=== PATIENT | female | born 2000 | race Two or more races ===

== ENCOUNTER 2021-01-22 10:57 | Emergency (ER) | payer OTHER ==
[~2021-01-22] VITALS: Ht 154.9 cm; Wt 78.9 kg
[2021-01-22 10:59] VITALS: BP 132/72
== END 2021-01-22 13:21 | disposition left against medical advice (07) ==
LOC: ER 10:57
DX: J45.909 Unspecified asthma, uncomplicated (principal); K21.9 Gastro-esophageal reflux disease without esophagitis; Z20.822 Contact with and (suspected) exposure to COVID-19
CPT/HCPCS: 36415; 71046; 87426

== ENCOUNTER 2021-01-22 19:00 | Emergency (ER) | payer OTHER ==
[~2021-01-22] VITALS: Ht 154.9 cm; Wt 78.9 kg
[2021-01-22 21:48] VITALS: BP 128/85
[2021-01-22] MEDS ORDERED: ALBUTEROL SULF 2.5 MG/0.5ML(0.5%) NEB SOLN NEB ONE (22:15)
[2021-01-22] MEDS ORDERED: IPRATROPIUM BROM 0.5 MG/2.5ML INH SOL NEB ONE (22:15)
== END 2021-01-22 23:50 | disposition home or self-care (01) ==
LOC: ER 19:02
DX: J98.01 Acute bronchospasm (principal); E66.9 Obesity, unspecified
CPT/HCPCS: 94640; 99283; J7644

== ENCOUNTER 2021-02-07 13:00 | Inpatient (IN) | payer OTHER ==
[~2021-02-07] VITALS: Ht 154.9 cm; Wt 86.2 kg
[2021-02-07 19:46] LABS: Basophils # (auto) 0.1 10 ^3/uL (0-0.2); Basophils % (auto) 0.5 % (0.0-2.0); Eosinophils # (auto) 0.4 10 ^3/uL (0-0.8); Eosinophils % (auto) 3.4 % (0.0-7.0); Hematocrit 39.8 % (36.0-46.0); Lymphocytes # (auto) 1.5 10 ^3/uL (0.4-5.4); Lymphocytes % (auto) 12.1 % (10.0-50.0); Mean Corpuscular Hemoglobin 27.6 pg (28.0-32.0); Mean Corpuscular Hgb Conc. 32.7 g/dL (32.0-36.0); Mean Corpuscular Volume 84.4 fL (80.0-100.0); Monocytes # (auto) 0.8 10 ^3/uL (0-1.3); Monocytes % (auto) 6.3 % (0.0-12.0); Neutrophils # (auto) 9.4 10 ^3/uL (1.6-8.6); Neutrophils % (auto) 77.7 % (37.0-80.0); Red Blood Cells 4.71 10^6/uL (4.0-5.20); Red Cell Distribution Width 13.2 % (11.8-14.3); White Blood Cell 12.1 10^3/uL (4.4-10.8)
[2021-02-07 20:18] LABS: Albumin 3.3 g/dL (3.4-5.0); BUN/Creatinine Ratio 19.7; Calcium 8.7 mg/dL (8.5-10.1); Potassium 3.9 mmol/L (3.5-5.1)
[2021-02-07 20:21] LABS: Bilirubin, Total 0.3 mg/dL (0.2-1.0); Total Protein 7.7 g/dL (6.4-8.2)
[2021-02-07] MEDS ORDERED: ENOXAPARIN SOD 80 MG/0.8ML SYRINGE SC ONE (22:15)
[2021-02-07] MEDS: MORPHINE SULFATE 4 MG/ML SYR/VIAL IV PRN (22:45)
[2021-02-07] MEDS ORDERED: MORPHINE SULFATE INJECTION 2 MG/ML SYRG ONE (22:45)
[2021-02-07] MEDS ORDERED: NITROGLYCERIN 0.4 MG SL TAB SL PRN (23:45)
[2021-02-07] MEDS ORDERED: MORPHINE SULFATE INJECTION 2 MG/ML SYRG IV PRN (23:45)
[2021-02-08] MEDS: HYDROcodone-ACET 5/325MG TAB PO PRN ×2 (01:15→09:42)
[2021-02-08] MEDS: SODIUM CHLOR 0.9% PF (SALINE LOCK) 10ML VIAL/SYR IV SCH ×3 (05:08→22:00)
[2021-02-08] MEDS: MORPHINE SULFATE 4 MG/ML SYR/VIAL IV PRN ×3 (07:00→18:22)
[2021-02-08 08:54] LABS: Basophils # (auto) 0 10 ^3/uL (0-0.2); Basophils % (auto) 0.4 % (0.0-2.0); Eosinophils # (auto) 0.4 10 ^3/uL (0-0.8); Eosinophils % (auto) 4.2 % (0.0-7.0); Hematocrit 34.7 % (36.0-46.0); Hemoglobin 11.7 g/dL (12.2-16.2); Lymphocytes % (auto) 18.9 % (10.0-50.0); Mean Corpuscular Hemoglobin 28.4 pg (28.0-32.0); Mean Corpuscular Hgb Conc. 33.9 g/dL (32.0-36.0); Mean Corpuscular Volume 83.9 fL (80.0-100.0); Monocytes # (auto) 0.7 10 ^3/uL (0-1.3); Monocytes % (auto) 6.8 % (0.0-12.0); Neutrophils # (auto) 7.5 10 ^3/uL (1.6-8.6); Neutrophils % (auto) 69.7 % (37.0-80.0); Nucleated Red Blood Cells % 0.1 %; Red Blood Cells 4.13 10^6/uL (4.0-5.20); White Blood Cell 10.7 10^3/uL (4.4-10.8)
[2021-02-08] MEDS: cefTRIAXone 1GM/50ML D5W 50 ML IV SCH (09:16)
[2021-02-08] MEDS: ENOXAPARIN SOD 80 MG/0.8ML SYRINGE SC SCH ×2 (09:42→22:45)
[2021-02-08 09:47] LABS: Potassium 3.7 mmol/L (3.5-5.1)
[2021-02-08 09:59] LABS: Albumin 2.9 g/dL (3.4-5.0); Bilirubin, Total 0.4 mg/dL (0.2-1.0); Calcium 8.4 mg/dL (8.5-10.1); Total Protein 7.2 g/dL (6.4-8.2)
[2021-02-08] MEDS: FAMOTIDINE (10MG/ML) 2ML VL IV SCH (10:20)
[2021-02-08] MEDS ORDERED: IOHEXOL 350 MG/ML 100ML IJ ONE (13:42)
[2021-02-08] MEDS ORDERED: FAMO20TA10 PO (17:37)
[2021-02-08] MEDS ORDERED: VALA1TAB34 PO (17:37)
[2021-02-08] MEDS ORDERED: CETI1TAB36 PO (17:37)
[2021-02-08] MEDS ORDERED: BUSP15TA60 PO (17:37)
[2021-02-08] MEDS ORDERED: RIS1T PO (17:37)
[2021-02-08] MEDS ORDERED: ESCI20TA PO (17:37)
[2021-02-08] MEDS ORDERED: CHOL20007 PO (17:37)
[2021-02-08] MEDS: ACETAMINOPHEN 325 MG TAB PO PRN (20:16)
[2021-02-08] MEDS: TEMAZEPAM 15 MG CAP PO PRN (21:10)
[2021-02-09] MEDS: MORPHINE SULFATE 4 MG/ML SYR/VIAL IV PRN ×3 (03:52→20:39)
[2021-02-09 05:00] VITALS: BP 104/60
[2021-02-09] MEDS: SODIUM CHLOR 0.9% PF (SALINE LOCK) 10ML VIAL/SYR IV SCH ×3 (05:32→21:36)
[2021-02-09] MEDS: FAMOTIDINE (10MG/ML) 2ML VL IV SCH (08:57)
[2021-02-09] MEDS: HYDROcodone-ACET 5/325MG TAB PO PRN ×3 (08:57→23:39)
[2021-02-09] MEDS: ENOXAPARIN SOD 80 MG/0.8ML SYRINGE SC SCH ×2 (08:57→21:36)
[2021-02-09 09:06] VITALS: BP 114/57
[2021-02-09] MEDS ORDERED: INFLUENZA QUAD 2021-2022 0.5 ML SYRG IM ONE (10:00)
[2021-02-09 12:59] VITALS: BP 122/65
[2021-02-09] MEDS: cefTRIAXone 1GM/50ML D5W 50 ML IV SCH (13:29)
[2021-02-09 16:54] VITALS: BP 122/68
[2021-02-09] MEDS: ACETAMINOPHEN 325 MG TAB PO PRN (18:15)
[2021-02-09 21:08] VITALS: BP 116/56
[2021-02-09] MEDS: TEMAZEPAM 15 MG CAP PO PRN (22:20)
[2021-02-10] MEDS: HYDROcodone-ACET 5/325MG TAB PO PRN ×4 (03:23→21:05)
[2021-02-10 05:43] VITALS: BP 115/62
[2021-02-10] MEDS: SODIUM CHLOR 0.9% PF (SALINE LOCK) 10ML VIAL/SYR IV SCH ×3 (05:55→21:09)
[2021-02-10] MEDS: cefTRIAXone 1GM/50ML D5W 50 ML IV SCH (08:20)
[2021-02-10] MEDS: FAMOTIDINE (10MG/ML) 2ML VL IV SCH (08:39)
[2021-02-10] MEDS: ENOXAPARIN SOD 80 MG/0.8ML SYRINGE SC SCH ×2 (08:39→21:09)
[2021-02-10 08:56] VITALS: BP 118/60
[2021-02-10] MEDS: MORPHINE SULFATE 4 MG/ML SYR/VIAL IV PRN ×2 (10:34→17:39)
[2021-02-10] MEDS: ONDANSETRON HCL 4 MG/2 ML VIAL IV PRN (10:34)
[2021-02-10 14:38] VITALS: BP 114/58
[2021-02-10] MEDS: DOCUSATE SOD 100 MG CAP PO PRN ×2 (14:42→21:45)
[2021-02-10 17:19] VITALS: BP 125/71
[2021-02-10] MEDS: TEMAZEPAM 15 MG CAP PO PRN (21:45)
[2021-02-11] MEDS: MORPHINE SULFATE 4 MG/ML SYR/VIAL IV PRN ×3 (04:05→17:21)
[2021-02-11 05:00] VITALS: BP 109/56
[2021-02-11] MEDS: SODIUM CHLOR 0.9% PF (SALINE LOCK) 10ML VIAL/SYR IV SCH ×3 (06:21→21:17)
[2021-02-11 09:00] VITALS: BP 105/60
[2021-02-11] MEDS: cefTRIAXone 1GM/50ML D5W 50 ML IV SCH (09:04)
[2021-02-11] MEDS: FAMOTIDINE (10MG/ML) 2ML VL IV SCH (09:05)
[2021-02-11] MEDS: HYDROcodone-ACET 5/325MG TAB PO PRN ×3 (09:05→21:15)
[2021-02-11] MEDS: ENOXAPARIN SOD 80 MG/0.8ML SYRINGE SC SCH ×2 (09:05→22:30)
[2021-02-11] MEDS ORDERED: CITALOPRAM HYDROBR 20 MG TAB PO ONE (12:00)
[2021-02-11] MEDS ORDERED: CHOLECALCIFEROL (VITD3) 2,000 UNIT CAP/TAB PO ONE (12:00)
[2021-02-11] MEDS ORDERED: busPIRone HCL 10 MG TAB PO ONE (12:00)
[2021-02-11] MEDS: DOCUSATE SOD 100 MG CAP PO PRN (12:37)
[2021-02-11 13:00] VITALS: BP 114/67
[2021-02-11 16:52] VITALS: BP 120/74
[2021-02-11] MEDS: risperiDONE 1 MG TAB PO SCH (21:16)
[2021-02-11] MEDS: busPIRone HCL 10 MG TAB PO SCH (21:17)
[2021-02-11 21:29] LABS: Urine Bacteria NONE SEEN /hpf (None Seen); Urine Blood Negative /uL (Negative); Urine Mucus FEW (None Seen); Urine Specific Gravity 1.012 (1.001-1.035); Urine WBC 2 /hpf (0 - 5)
[2021-02-11 22:00] VITALS: BP 116/65
[2021-02-11 23:05] LABS: INR 1.01 (0.9-1.15); Partial Thromboplastin Time 25.4 sec (23.6-33.0)
[2021-02-12 03:06] LABS: Basophils # (auto) 0 10 ^3/uL (0-0.2); Basophils % (auto) 0.6 % (0.0-2.0); Eosinophils # (auto) 0.8 10 ^3/uL (0-0.8); Eosinophils % (auto) 9.5 % (0.0-7.0); Hematocrit 34.6 % (36.0-46.0); Hemoglobin 11.6 g/dL (12.2-16.2); Lymphocytes # (auto) 2.1 10 ^3/uL (0.4-5.4); Lymphocytes % (auto) 25.9 % (10.0-50.0); Mean Corpuscular Hemoglobin 28.3 pg (28.0-32.0); Mean Corpuscular Hgb Conc. 33.5 g/dL (32.0-36.0); Mean Corpuscular Volume 84.4 fL (80.0-100.0); Monocytes # (auto) 0.4 10 ^3/uL (0-1.3); Monocytes % (auto) 5.1 % (0.0-12.0); Neutrophils # (auto) 4.7 10 ^3/uL (1.6-8.6); Neutrophils % (auto) 58.9 % (37.0-80.0); Red Cell Distribution Width 13.2 % (11.8-14.3)
[2021-02-12] MEDS: MORPHINE SULFATE 4 MG/ML SYR/VIAL IV PRN ×2 (03:06→18:34)
[2021-02-12 03:27] LABS: Albumin 2.7 g/dL (3.4-5.0); BUN/Creatinine Ratio 21.9; Calcium 8.2 mg/dL (8.5-10.1); Potassium 4.5 mmol/L (3.5-5.1)
[2021-02-12 03:29] LABS: Bilirubin, Total 0.2 mg/dL (0.2-1.0); Total Protein 6.3 g/dL (6.4-8.2)
[2021-02-12 05:00] VITALS: BP 114/57
[2021-02-12] MEDS: SODIUM CHLOR 0.9% PF (SALINE LOCK) 10ML VIAL/SYR IV SCH ×3 (06:00→22:23)
[2021-02-12 09:00] VITALS: BP 116/66
[2021-02-12] MEDS: ENOXAPARIN SOD 80 MG/0.8ML SYRINGE SC SCH (10:00)
[2021-02-12] MEDS: busPIRone HCL 10 MG TAB PO SCH ×2 (10:01→22:23)
[2021-02-12] MEDS: cefTRIAXone 1GM/50ML D5W 50 ML IV SCH (10:01)
[2021-02-12] MEDS: HYDROcodone-ACET 5/325MG TAB PO PRN ×2 (10:02→21:02)
[2021-02-12] MEDS: CITALOPRAM HYDROBR 20 MG TAB PO SCH (10:02)
[2021-02-12] MEDS: risperiDONE 1 MG TAB PO SCH (10:03)
[2021-02-12] MEDS: CHOLECALCIFEROL (VITD3) 2,000 UNIT CAP/TAB PO SCH (10:03)
[2021-02-12] MEDS: FAMOTIDINE (10MG/ML) 2ML VL IV SCH (11:26)
[2021-02-12] MEDS ORDERED: ANGIOMAX 250 MG VIAL IV ONE (12:26)
[2021-02-12] MEDS ORDERED: fentaNYL CITRATE 100 MCG/2 ML VL ONE (12:26)
[2021-02-12] MEDS ORDERED: HEPARIN IN NS 1000Units/500mL 0 ML ONE (12:27)
[2021-02-12] MEDS ORDERED: LIDOCAINE 2%HCL (LOCAL ANESTH.) INJ 20ML MDV ONE ×2 (12:27→12:38)
[2021-02-12] MEDS ORDERED: MIDAZOLAM HCL 2MG/2ML 2ml VIAL (1mg/ml) ONE (12:27)
[2021-02-12] MEDS ORDERED: IOHEXOL 350 MG/ML 100ML IJ ONE (12:27)
[2021-02-12] MEDS ORDERED: SODIUM CHL 0.9% 0 ML ONE (12:27)
[2021-02-12] MEDS ORDERED: IODIXANOL 320MG/ML 100ML BTL IV ONE (12:38)
[2021-02-12 13:00] VITALS: BP 128/68
[2021-02-12] MEDS ORDERED: LACTULOSE 20Gm/30ML SOLN PO ONE (14:15)
[2021-02-12] MEDS: ONDANSETRON HCL 4 MG/2 ML VIAL IV PRN (15:23)
[2021-02-12 17:00] VITALS: BP 121/70
[2021-02-12 22:00] VITALS: BP 108/68
[2021-02-12] MEDS: RIVAROXABAN 15 MG TAB PO SCH (22:23)
[2021-02-13] MEDS: ONDANSETRON HCL 4 MG/2 ML VIAL IV PRN (03:34)
[2021-02-13] MEDS: HYDROcodone-ACET 5/325MG TAB PO PRN ×3 (03:34→14:03)
[2021-02-13 05:00] VITALS: BP 117/59
[2021-02-13] MEDS: SODIUM CHLOR 0.9% PF (SALINE LOCK) 10ML VIAL/SYR IV SCH ×2 (06:29→14:06)
[2021-02-13 09:00] VITALS: BP 94/57
[2021-02-13] MEDS: risperiDONE 1 MG TAB PO SCH (09:17)
[2021-02-13] MEDS: FAMOTIDINE (10MG/ML) 2ML VL IV SCH (09:17)
[2021-02-13] MEDS: cefTRIAXone 1GM/50ML D5W 50 ML IV SCH (09:17)
[2021-02-13] MEDS: CITALOPRAM HYDROBR 20 MG TAB PO SCH (09:18)
[2021-02-13] MEDS: busPIRone HCL 10 MG TAB PO SCH (09:18)
[2021-02-13] MEDS: CHOLECALCIFEROL (VITD3) 2,000 UNIT CAP/TAB PO SCH (09:18)
[2021-02-13] MEDS: RIVAROXABAN 15 MG TAB PO SCH (09:20)
[2021-02-13 13:00] VITALS: BP 98/55
== END 2021-02-13 14:45 | disposition home or self-care (01) | DRG 197 ==
LOC: ER 13:00 → TELE 23:34 → TELE-WESTW 02-08 18:47
PROVIDERS: ADMIT Nurse Practitioner Family; ATTEND Family Medicine
PROC: 3E0234Z Introduction of Serum, Toxoid and Vaccine into Muscle, Percutaneous Approach (ICD-10-PCS; principal; 2021-02-13)
DX: I82.412 Acute embolism and thrombosis of left femoral vein (principal); I26.99 Other pulmonary embolism without acute cor pulmonale; J96.01 Acute respiratory failure with hypoxia; J18.9 Pneumonia, unspecified organism; D68.69 Other thrombophilia; I82.432 Acute embolism and thrombosis of left popliteal vein; E66.9 Obesity, unspecified; Z68.32 Body mass index [BMI] 32.0-32.9, adult; E78.00 Pure hypercholesterolemia, unspecified; F32.A Depression, unspecified; J45.909 Unspecified asthma, uncomplicated; I82.442 Acute embolism and thrombosis of left tibial vein; Z20.822 Contact with and (suspected) exposure to COVID-19; Z23 Encounter for immunization
CPT/HCPCS: 36415; 51702; 71275; 80053; 81001; 81025; 85025; 85610; 85730; 86850; 86900; 86901; 87081; 87426; 93005; 93306; 93971; 96372; G0378; J0696; J2250; J2405; J3490; Q9967